=== PATIENT | male | born 1970 | race Caucasian/White ===

== ENCOUNTER 2017-12-04 13:52 | Inpatient (IN) | payer BC, MEDICAID, OTHER ==
[~2017-12-04] VITALS: Ht 172.7 cm; Wt 101.9 kg
[2017-12-04 14:52] LABS: CULTURE INDICATED? YES; MICROSCOPIC INDICATED
[2017-12-04] MEDS ORDERED: SODIUM CHLORIDE FLUSH 10ML SYR IVF ONE (16:30)
[2017-12-04] MEDS ORDERED: ONDANSETRON 2MG/ML, 2ML IVPush ONE (16:30)
[2017-12-04] MEDS ORDERED: SODIUM CHLORIDE 0.9% 1,000ML IVBOLUS ONE (16:30)
[2017-12-04] MEDS ORDERED: HYDROmorphone 2 MG/ML, 1ML ONE ×2 (16:35→22:20)
[2017-12-04] MEDS ORDERED: ONDANSETRON 2MG/ML, 2ML ONE ×2 (16:36→20:45)
[2017-12-04] MEDS: HYDROmorphone 1 MG/ML, 1ML IVPush PRN ×2 (16:37→18:14)
[2017-12-04 16:51] LABS: BASOPHILS # (AUTO) 0.02 x10^3/uL (0-0.1); BASOPHILS % (AUTO) 0 % (0-1); EOSINOPHILS # (AUTO) 0.01 x10^3/uL (0-0.4); EOSINOPHILS % (AUTO) 0 % (1-7); LYMPHOCYTES # (AUTO) 1.42 x10^3/uL (1-3.4); LYMPHOCYTES % (AUTO) 12 % (22-44); MD NO; MEAN CORPUSCULAR HEMOGLOBIN 30.2 pg (27.5-34.5); MEAN CORPUSCULAR HGB CONC 33.5 g/dL (33.2-36.2); MEAN CORPUSCULAR VOLUME 90.2 fL (81-97); MEAN PLATELET VOLUME 9.2 fL (7.4-10.4); MONOCYTES # (AUTO) 1.07 x10^3/uL (0.2-0.8); MONOCYTES % (AUTO) 9 % (2-9); NEUTROPHILS # (AUTO) 9.14 x10^3/uL (1.8-6.8); NEUTROPHILS % (AUTO) 78 % (42-75); PLATELET COUNT 223 x10^3/uL (130-400); RED BLOOD COUNT 5.02 x10^6/uL (4.38-5.82); RED CELL DISTRIBUTION WIDTH 12.4 % (9.4-14.8)
[2017-12-04 17:00] LABS: ALANINE AMINOTRANSFERASE 21 U/L (12-78); ALBUMIN 3.6 g/dL (3.4-5.0); ANION GAP 6 mmol/L (5-15); CALCIUM 8.8 mg/dL (8.5-10.1); CHLORIDE 101 mmol/L (98-107); CREATININE 1.11 mg/dL (0.7-1.3)
[2017-12-04 17:02] LABS: ALKALINE PHOSPHATASE 72 U/L (45-117); BILIRUBIN,TOTAL 1.1 mg/dL (0.2-1.0); TOTAL PROTEIN 7.6 g/dL (6.4-8.2)
[2017-12-04] MEDS ORDERED: OMNIPAQUE 350 MG/ML, 100ML BOTTLE ONE (17:37)
[2017-12-04] MEDS ORDERED: MIDAZOLAM 1 MG/ML, 2ML ONE (19:16)
[2017-12-04] MEDS ORDERED: FENTANYL PF 250 MCG/5ML ONE (19:16)
[2017-12-04] MEDS ORDERED: KETOROLAC 30 MG/1 ML ONE (20:12)
[2017-12-04] MEDS ORDERED: CEFOTETAN 2 GM ONE (20:12)
[2017-12-04] MEDS ORDERED: CEFOTETAN PMX 2GM/50ML 0 ML ONE (20:16)
[2017-12-04] MEDS ORDERED: KETAMINE 10 MG/ML, 20ML ONE (20:26)
[2017-12-04] MEDS ORDERED: EPHEDRINE 50 MG/ML, 1ML ONE (20:45)
[2017-12-04] MEDS ORDERED: NEOSTIGMINE 1 MG/ML, 10ML ONE (20:45)
[2017-12-04] MEDS ORDERED: ROCURONIUM 10 MG/ML,10ML ONE (20:45)
[2017-12-04] MEDS ORDERED: SUCCINYLCHOLINE 20 MG/ML, 10ML ONE (20:45)
[2017-12-04] MEDS ORDERED: BUPIVACAINE/PF 0.25% ONE ×2 (20:45)
[2017-12-04] MEDS ORDERED: GLYCOPYRROLATE 0.2MG/1ML, 5ML ONE (20:45)
[2017-12-04] MEDS ORDERED: PROPOFOL 10 MG/ML, 20ML ONE (20:45)
[2017-12-04] MEDS ORDERED: CEFAZOLIN 1,000 MG ONE (20:45)
[2017-12-04] MEDS ORDERED: DEXAMETHASONE 4 MG/ML, 1ML ONE (20:45)
[2017-12-04] MEDS ORDERED: EPINEPHRINE 1 MG/ML, 1ML ONE (20:47)
[2017-12-04] MEDS ORDERED: MIDAZOLAM 1 MG/ML, 2ML IV PRN (21:00)
[2017-12-04] MEDS ORDERED: OXYcodone 5 MG/5 ML ORAL.SOL UDC PO PRN (21:00)
[2017-12-04] MEDS ORDERED: ACETAMINOPHEN 325 MG TABLET PO PRN ×2 (21:00→22:00)
[2017-12-04] MEDS ORDERED: PROMETHAZINE 25 MG/ML, 1ML IV PRN (21:00)
[2017-12-04] MEDS ORDERED: ONDANSETRON 2MG/ML, 2ML IVPush PRN ×2 (21:00→22:00)
[2017-12-04] MEDS ORDERED: hydrALAzine 20 MG/ML, 1ML IV PRN (21:00)
[2017-12-04] MEDS ORDERED: LABETALOL 5MG/ML, 20ML IV PRN (21:00)
[2017-12-04] MEDS ORDERED: MEPERIDINE/PF 25MG/0.5ML IVPush PRN (21:00)
[2017-12-04] MEDS ORDERED: DIAZEPAM 5 MG/ML, 2ML IVPush PRN (21:00)
[2017-12-04] MEDS ORDERED: ALBUTEROL/IPRATROPIUM 2.5MG/0.5MG, 3 ML NPPB PRN (21:00)
[2017-12-04] MEDS ORDERED: METOCLOPRAMIDE 5 MG/ML, 2ML IV PRN (21:00)
[2017-12-04] MEDS ORDERED: ACETAMINOPHEN 650 MG/20.3 ML UDC ONE (21:52)
[2017-12-04] MEDS ORDERED: MEPERIDINE/PF 50 MG/ML ONE (21:53)
[2017-12-04] MEDS ORDERED: OXYcodone 5 MG/5 ML ORAL.SOL UDC ONE (21:53)
[2017-12-04] MEDS ORDERED: FENTANYL PF 100 MCG/2ML ONE (21:53)
[2017-12-04] MEDS: FENTANYL PF 100 MCG/2ML IV PRN ×2 (21:55→22:05)
[2017-12-04] MEDS ORDERED: morphine SULFATE 10 MG/ML, 1ML IVPush PRN (22:00)
[2017-12-04] MEDS: HYDROmorphone 1 MG/ML, 1ML IV PRN ×2 (22:21→22:36)
[2017-12-05] MEDS: D5%-0.45NACL+KCL 20MEQ 1,000 ML IV SCH ×2 (02:00→15:48)
[2017-12-05 03:01] VITALS: BP 105/58
[2017-12-05 03:02] VITALS: BP 106/62
[2017-12-05 04:30] VITALS: BP 98/56
[2017-12-05 05:27] LABS: BASOPHILS # (AUTO) 0.01 x10^3/uL (0-0.1); BASOPHILS % (AUTO) 0 % (0-1); EOSINOPHILS % (AUTO) 0 % (1-7); LYMPHOCYTES # (AUTO) 0.44 x10^3/uL (1-3.4); LYMPHOCYTES % (AUTO) 4 % (22-44); MD NO; MEAN CORPUSCULAR HEMOGLOBIN 30.3 pg (27.5-34.5); MEAN CORPUSCULAR HGB CONC 34.1 g/dL (33.2-36.2); MEAN PLATELET VOLUME 9.5 fL (7.4-10.4); MONOCYTES # (AUTO) 0.42 x10^3/uL (0.2-0.8); MONOCYTES % (AUTO) 4 % (2-9); NEUTROPHILS # (AUTO) 9.96 x10^3/uL (1.8-6.8); NEUTROPHILS % (AUTO) 92 % (42-75); PLATELET COUNT 189 x10^3/uL (130-400); RED BLOOD COUNT 4.55 x10^6/uL (4.38-5.82); RED CELL DISTRIBUTION WIDTH 12.1 % (9.4-14.8)
[2017-12-05 05:35] LABS: ANION GAP 8 mmol/L (5-15); CALCIUM 8.4 mg/dL (8.5-10.1); CHLORIDE 105 mmol/L (98-107); CREATININE 1.15 mg/dL (0.7-1.3)
[2017-12-05 07:03] VITALS: BP 103/62
[2017-12-05] MEDS: KETOROLAC 30 MG/1 ML IVPush SCH ×3 (08:28→22:23)
[2017-12-05] MEDS: CEFOTETAN PMX 1GM/50ML 50 ML IVPB SCH ×2 (08:30→22:23)
[2017-12-05] MEDS ORDERED: MORPHINE SULFATE 4 MG/ML, 1ML IVPush PRN (08:30)
[2017-12-05] MEDS: FAMOTIDINE 20 MG/2 ML IVPush SCH ×2 (09:57→22:23)
[2017-12-05 12:07] VITALS: BP 108/68
[2017-12-05 19:49] VITALS: BP 100/58
[2017-12-06] MEDS: D5%-0.45NACL+KCL 20MEQ 1,000 ML IV SCH ×3 (01:30→21:30)
[2017-12-06 04:38] VITALS: BP 102/59
[2017-12-06] MEDS: KETOROLAC 30 MG/1 ML IVPush SCH ×4 (04:47→23:09)
[2017-12-06 07:01] VITALS: BP 102/50
[2017-12-06] MEDS: FAMOTIDINE 20 MG/2 ML IVPush SCH ×2 (08:36→21:16)
[2017-12-06] MEDS: CEFOTETAN PMX 1GM/50ML 50 ML IVPB SCH (08:36)
[2017-12-06 12:35] VITALS: BP 102/54
[2017-12-06] MEDS ORDERED: OXYcodone/APAP 7.5/325MG TABLET PO PRN (16:00)
[2017-12-06 20:30] VITALS: BP 109/64
[2017-12-06] MEDS: HYDROcodone/APAP 10/325 MG TABLET PO PRN (21:16)
[2017-12-07 01:50] VITALS: BP 101/64
[2017-12-07] MEDS: HYDROcodone/APAP 10/325 MG TABLET PO PRN (03:25)
[2017-12-07] MEDS: KETOROLAC 30 MG/1 ML IVPush SCH (05:46)
[2017-12-07] MEDS: D5%-0.45NACL+KCL 20MEQ 1,000 ML IV SCH (07:30)
[2017-12-07 09:22] VITALS: BP 112/66
[2017-12-07] MEDS: FAMOTIDINE 20 MG/2 ML IVPush SCH (09:28)
[2017-12-07 12:58] VITALS: BP 122/78
[2017-12-07] MEDS ORDERED: OXYC-306 PO (16:00)
[2017-12-07] MEDS ORDERED: CEPH-368 PO (16:02)
== END 2017-12-07 16:24 | disposition home or self-care (01) | DRG 329 ==
LOC: OR 18:12 → EDIP 18:20 → 4NOR 22:50 → DCLOUNGE 12-07 16:10
PROVIDERS: ADMIT Surgery; ATTEND Surgery
PROC: 0DTF0ZZ Resection of Right Large Intestine, Open Approach (ICD-10-PCS; principal; 2017-12-04 21:15)
DX: R19.09 Other intra-abdominal and pelvic swelling, mass and lump (principal); K65.9 Peritonitis, unspecified
CPT/HCPCS: 36415; 74177; 80048; 80053; 81001; 83690; 85025; 87086; 88307; 96361; 96374; 96375; 96376; J0171; J0690; J1100; J1170; J1885; J2175; J2250; J2270; J2405; J2704; J2710; J3010; J3490; Q9967; J0330; J3480; J7030; S0028; S0074

== ENCOUNTER 2017-12-30 12:44 | Emergency (ER) | payer BC ==
[~2017-12-30] VITALS: Ht 172.7 cm; Wt 93.6 kg
[~2017-12-30 12:44] MED LIST: CEPH-368 PO; OXYC-306 PO
[2017-12-30] MEDS ORDERED: OXYcodone/APAP 5/325MG TABLET PO ONE (13:00)
[2017-12-30] MEDS ORDERED: DIAZEPAM 5 MG TABLET PO ONE (13:00)
[2017-12-30] MEDS ORDERED: KETOROLAC 30 MG/1 ML IM ONE (13:00)
[2017-12-30] MEDS ORDERED: OXYcodone/APAP 5/325MG TABLET ONE (13:12)
[2017-12-30] MEDS ORDERED: DIAZEPAM 5 MG TABLET ONE (13:12)
[2017-12-30] MEDS ORDERED: KETOROLAC 30 MG/1 ML ONE (13:12)
[2017-12-30] MEDS ORDERED: SODIUM CHLORIDE FLUSH 10ML SYR IVF ONE (14:30)
[2017-12-30] MEDS ORDERED: MORPHINE SULFATE 4 MG/ML, 1ML IVPush PRN (14:30)
[2017-12-30] MEDS ORDERED: MORPHINE SULFATE 4 MG/ML, 1ML ONE (14:36)
[2017-12-30] MEDS ORDERED: DIAZEPAM 5 MG/ML, 2ML IVPush ONE (16:00)
[2017-12-30 17:04] VITALS: BP 113/55
== END 2017-12-30 17:24 | disposition home or self-care (01) ==
LOC: ED 14:00
DX: M54.5 Low back pain (principal); Z87.891 Personal history of nicotine dependence; Z90.49 Acquired absence of other specified parts of digestive tract
CPT/HCPCS: 96372; 96374; 96375; 99284; J1885; J3360

== ENCOUNTER → 2018-06-28 | Outpatient (CLI) | payer BC ==
[~2018-06-28] MED LIST changes: +None at this Time
== END | disposition home or self-care (01) ==
LOC: STAR 08:16
PROVIDERS: ATTEND Surgery
DX: Z02.9 Encounter for administrative examinations, unspecified (principal)

== ENCOUNTER 2018-07-04 07:06 | Observation (INO) | payer BC ==
[2018-06-28 13:10] VITALS: BP 118/69
[~2018-07-04] VITALS: Ht 172.7 cm; Wt 109.6 kg
[~2018-07-04 07:06] MED LIST changes: +BUPIVACAINE/PF-EPI 0.5% 1:200K ONE
[2018-07-04] MEDS ORDERED: LACTATED RINGERS 1,000 ML IV SCH (07:21)
[2018-07-04] MEDS ORDERED: ACETAMINOPHEN 500 MG TABLET PO ONE (07:30)
[2018-07-04] MEDS ORDERED: GABAPENTIN 300 MG CAPSULE PO ONE (07:30)
[2018-07-04] MEDS ORDERED: LIDOCAINE-MPF 1%, 2ML INFIL ONE (07:30)
[2018-07-04] MEDS ORDERED: ONDANSETRON ODT 8 MG PO ONE (07:30)
[2018-07-04] MEDS ORDERED: MIDAZOLAM 1 MG/ML, 2ML ONE (07:38)
[2018-07-04] MEDS ORDERED: FENTANYL PF 250 MCG/5ML ONE (07:39)
[2018-07-04] MEDS ORDERED: ROCURONIUM 10MG/ML,5ML ONE (07:41)
[2018-07-04] MEDS ORDERED: PROPOFOL 10 MG/ML, 20ML ONE (07:41)
[2018-07-04] MEDS ORDERED: CEFAZOLIN 1,000 MG ONE ×2 (07:42)
[2018-07-04] MEDS ORDERED: DEXAMETHASONE 4 MG/ML, 1ML ONE ×2 (07:42)
[2018-07-04] MEDS ORDERED: SUCCINYLCHOLINE 20 MG/ML, 10ML ONE (07:42)
[2018-07-04] MEDS ORDERED: EPHEDRINE 50 MG/ML, 1ML IVPush PRN (08:00)
[2018-07-04] MEDS ORDERED: LABETALOL 5MG/ML, 20ML IV PRN (08:00)
[2018-07-04] MEDS ORDERED: MEPERIDINE/PF 25MG/0.5ML IVPush PRN (08:00)
[2018-07-04] MEDS ORDERED: MORPHINE SULFATE 4 MG/ML, 1ML IVPush PRN (08:00)
[2018-07-04] MEDS ORDERED: PROMETHAZINE 25 MG/ML, 1ML IM PRN (08:00)
[2018-07-04] MEDS ORDERED: OXYcodone 5 MG/5 ML ORAL.SOL UDC PO PRN (08:00)
[2018-07-04] MEDS ORDERED: PROMETHAZINE 12.5 MG SUPP PR PRN (08:00)
[2018-07-04] MEDS ORDERED: hydrALAzine 20 MG/ML, 1ML IV PRN (08:00)
[2018-07-04] MEDS ORDERED: METOPROLOL 1 MG/ML, 5ML IV PRN (08:00)
[2018-07-04] MEDS ORDERED: ALBUTEROL SULFATE 2.5 MG/3 ML NPPB PRN (08:00)
[2018-07-04] MEDS ORDERED: MIDAZOLAM 1 MG/ML, 2ML IV PRN (08:00)
[2018-07-04] MEDS ORDERED: SODIUM CHLORIDE 0.9% PF 10ML ONE (08:42)
[2018-07-04] MEDS ORDERED: NEOSTIGMINE 1 MG/ML, 10ML ONE (10:37)
[2018-07-04] MEDS ORDERED: GLYCOPYRROLATE 0.2MG/1ML, 5ML ONE (10:37)
[2018-07-04] MEDS ORDERED: LABETALOL 5MG/ML, 20ML IVPush PRN (11:00)
[2018-07-04] MEDS ORDERED: ONDANSETRON 2MG/ML, 2ML IVPush PRN (11:00)
[2018-07-04] MEDS ORDERED: ENALAPRILAT 1.25 MG/ML, 2ML IVPush PRN (11:00)
[2018-07-04] MEDS ORDERED: ACETAMINOPHEN 325 MG TABLET PO PRN (11:00)
[2018-07-04] MEDS: FENTANYL PF 100 MCG/2ML IV PRN ×3 (11:10→11:20)
[2018-07-04] MEDS ORDERED: OXYcodone 5 MG/5 ML ORAL.SOL UDC ONE (11:12)
[2018-07-04] MEDS ORDERED: HYDROmorphone 2 MG/ML, 1ML ONE ×5 (11:12→21:23)
[2018-07-04] MEDS: HYDROmorphone 1 MG/ML, 1ML IV PRN ×4 (11:15→11:50)
[2018-07-04] MEDS ORDERED: FENTANYL PF 100 MCG/2ML ONE (11:16)
[2018-07-04] MEDS ORDERED: LORazepam 2 MG/ML, 1ML ONE (11:34)
[2018-07-04] MEDS: LORazepam 2 MG/ML, 1ML IVPush PRN ×2 (11:38→11:45)
[2018-07-04] MEDS ORDERED: MEPERIDINE/PF 50 MG/ML ONE (12:09)
[2018-07-04 13:00] VITALS: BP 112/72
[2018-07-04] MEDS: HYDROmorphone 1 MG/ML, 1ML IVPush PRN ×4 (14:20→21:27)
[2018-07-04] MEDS: D5%-0.45NACL+KCL 20MEQ 1,000 ML IV SCH (15:02)
[2018-07-04] MEDS: CEFAZOLIN PMX 1GM/50ML 50 ML IVPB SCH (16:31)
[2018-07-04 20:18] VITALS: BP 107/63
[2018-07-05] MEDS: D5%-0.45NACL+KCL 20MEQ 1,000 ML IV SCH ×2 (00:16→08:59)
[2018-07-05] MEDS: OXYcodone/APAP 7.5/325MG TABLET PO PRN ×2 (00:28→08:11)
[2018-07-05] MEDS: CEFAZOLIN PMX 1GM/50ML 50 ML IVPB SCH (00:29)
[2018-07-05 02:22] VITALS: BP 104/62
[2018-07-05 05:25] LABS: BASOPHILS # (AUTO) 0.04 x10^3/uL (0-0.1); BASOPHILS % (AUTO) 0 % (0-1); EOSINOPHILS # (AUTO) 0.04 x10^3/uL (0-0.4); EOSINOPHILS % (AUTO) 0 % (1-7); LYMPHOCYTES # (AUTO) 0.93 x10^3/uL (1-3.4); LYMPHOCYTES % (AUTO) 8 % (22-44); MD NO; MEAN CORPUSCULAR HEMOGLOBIN 30.2 pg (27.5-34.5); MEAN CORPUSCULAR HGB CONC 33.7 g/dL (33.2-36.2); MEAN CORPUSCULAR VOLUME 89.6 fL (81-97); MEAN PLATELET VOLUME 9.2 fL (7.4-10.4); MONOCYTES # (AUTO) 0.68 x10^3/uL (0.2-0.8); MONOCYTES % (AUTO) 6 % (2-9); NEUTROPHILS # (AUTO) 10.63 x10^3/uL (1.8-6.8); NEUTROPHILS % (AUTO) 86 % (42-75); PLATELET COUNT 233 x10^3/uL (130-400); RED BLOOD COUNT 4.77 x10^6/uL (4.38-5.82); RED CELL DISTRIBUTION WIDTH 12.4 % (9.4-14.8)
[2018-07-05 05:34] LABS: ANION GAP 6 mmol/L (5-15); CALCIUM 8.4 mg/dL (8.5-10.1); CHLORIDE 107 mmol/L (98-107)
[2018-07-05] MEDS ORDERED: HYDROmorphone 2 MG/ML, 1ML ONE (06:23)
[2018-07-05] MEDS: HYDROmorphone 1 MG/ML, 1ML IVPush PRN (06:27)
[2018-07-05 06:45] VITALS: BP 144/72
[2018-07-05 12:34] VITALS: BP 114/67
[2018-07-05 19:38] VITALS: BP 123/74
[2018-07-06 02:42] VITALS: BP 113/71
[2018-07-06 07:53] VITALS: BP 103/65
[2018-07-06] MEDS ORDERED: HYDR-882 PO (09:19)
== END 2018-07-06 10:09 | disposition home or self-care (01) ==
LOC: OUT 07:06 → ORIP 10:56 → 4NOR 12:50 → DCLOUNGE 07-06 09:52
PROVIDERS: ADMIT Surgery; ATTEND Surgery
DX: K43.2 Incisional hernia without obstruction or gangrene (principal); D49.0 Neoplasm of unspecified behavior of digestive system
CPT/HCPCS: 36415; 49560; 49568; 80048; 85025; 96365; 96366; 96375; 96376; C1781; G0378; J0330; J0690; J1100; J1170; J2060; J2175; J2250; J2704; J2710; J3010; J3480; J3490; J7120; Q0162

== ENCOUNTER 2018-07-18 21:04 | Inpatient (IN) | payer BC ==
[~2018-07-18] VITALS: Ht 172.7 cm; Wt 108.1 kg
[~2018-07-18 21:04] MED LIST changes: -BUPIVACAINE/PF-EPI 0.5% 1:200K ONE; +HYDR-3653 PO
[2018-07-18] MEDS ORDERED: ONDANSETRON 2MG/ML, 2ML ONE (21:36)
[2018-07-18] MEDS ORDERED: HYDROmorphone 2 MG/ML, 1ML ONE (21:36)
[2018-07-18 21:41] LABS: BASOPHILS # (AUTO) 0.04 x10^3/uL (0-0.1); BASOPHILS % (AUTO) 1 % (0-1); EOSINOPHILS # (AUTO) 0.25 x10^3/uL (0-0.4); EOSINOPHILS % (AUTO) 3 % (1-7); LYMPHOCYTES # (AUTO) 1.06 x10^3/uL (1-3.4); LYMPHOCYTES % (AUTO) 13 % (22-44); MD NO; MEAN CORPUSCULAR HEMOGLOBIN 29.8 pg (27.5-34.5); MEAN CORPUSCULAR HGB CONC 33.6 g/dL (33.2-36.2); MEAN CORPUSCULAR VOLUME 88.6 fL (81-97); MEAN PLATELET VOLUME 8.7 fL (7.4-10.4); MONOCYTES # (AUTO) 0.42 x10^3/uL (0.2-0.8); MONOCYTES % (AUTO) 5 % (2-9); NEUTROPHILS # (AUTO) 6.52 x10^3/uL (1.8-6.8); NEUTROPHILS % (AUTO) 79 % (42-75); PLATELET COUNT 289 x10^3/uL (130-400); RED BLOOD COUNT 5.19 x10^6/uL (4.38-5.82)
[2018-07-18 21:53] LABS: ALANINE AMINOTRANSFERASE 366 U/L (12-78); ALBUMIN 3.8 g/dL (3.4-5.0); ANION GAP 7 mmol/L (5-15); CALCIUM 9.1 mg/dL (8.5-10.1); CHLORIDE 106 mmol/L (98-107); CREATININE 1.06 mg/dL (0.7-1.3)
[2018-07-18 21:56] LABS: ALKALINE PHOSPHATASE 116 U/L (45-117); TOTAL PROTEIN 7.4 g/dL (6.4-8.2)
[2018-07-18] MEDS ORDERED: ONDANSETRON 2MG/ML, 2ML IVPush ONE (22:00)
[2018-07-18] MEDS ORDERED: SODIUM CHLORIDE FLUSH 10ML SYR IVF ONE (22:00)
[2018-07-18] MEDS ORDERED: SODIUM CHLORIDE 0.9% 1,000ML IVBOLUS ONE (22:00)
[2018-07-18] MEDS ORDERED: HYDROmorphone 2 MG/ML, 1ML IVPush PRN (22:00)
[2018-07-18 22:49] LABS: MICROSCOPIC INDICATED
[2018-07-18 23:01] LABS: CULTURE INDICATED? NO
[2018-07-18] MEDS ORDERED: PROMETHAZINE 25 MG/ML, 1ML IM PRN (23:30)
[2018-07-18] MEDS ORDERED: BISACODYL 10 MG SUPP PR PRN (23:30)
[2018-07-18] MEDS ORDERED: TEMAZEPAM 15 MG CAPSULE PO PRN (23:30)
[2018-07-18] MEDS ORDERED: hydrALAzine 20 MG/ML, 1ML IVPush PRN (23:30)
[2018-07-18] MEDS ORDERED: OMNIPAQUE 350 MG/ML, 100ML BOTTLE ONE (23:49)
[2018-07-19] MEDS: HYDROmorphone 2 MG/ML, 1ML IVPush PRN ×5 (00:43→21:49)
[2018-07-19 01:00] VITALS: BP 114/70
[2018-07-19 07:22] LABS: PROTHROMBIN TIME 10.3 Seconds (9.6-11.5)
[2018-07-19 07:24] LABS: ALANINE AMINOTRANSFERASE 354 U/L (12-78); ALBUMIN 3.4 g/dL (3.4-5.0); ANION GAP 5 mmol/L (5-15); CALCIUM 8.5 mg/dL (8.5-10.1); CHLORIDE 108 mmol/L (98-107); CREATININE 0.99 mg/dL (0.7-1.3)
[2018-07-19 07:34] LABS: ALKALINE PHOSPHATASE 113 U/L (45-117); BILIRUBIN,TOTAL 1.3 mg/dL (0.2-1.0); TOTAL PROTEIN 6.7 g/dL (6.4-8.2)
[2018-07-19 07:52] VITALS: BP 100/64
[2018-07-19] MEDS: SODIUM CHLORIDE 0.9% 1,000 ML IV SCH ×2 (09:33→18:34)
[2018-07-19] MEDS ORDERED: MAGNESIUM HYDROXIDE 8%, 30ML UDC ONE (11:46)
[2018-07-19] MEDS ORDERED: PROCHLORPERAZINE 5 MG/ML, 2ML ONE (11:53)
[2018-07-19] MEDS ORDERED: MAGNESIUM HYDROXIDE 8%, 30ML UDC PO PRN (12:00)
[2018-07-19] MEDS ORDERED: PROCHLORPERAZINE 5 MG/ML, 2ML IVPush PRN (12:00)
[2018-07-19 13:00] VITALS: BP 113/67
[2018-07-19 21:55] VITALS: BP 103/68
[2018-07-20 01:01] VITALS: BP 132/86
[2018-07-20 05:36] LABS: ALBUMIN 3.3 g/dL (3.4-5.0); ANION GAP 7 mmol/L (5-15); CALCIUM 8.6 mg/dL (8.5-10.1); CHLORIDE 107 mmol/L (98-107)
[2018-07-20 05:40] LABS: ALANINE AMINOTRANSFERASE 265 U/L (12-78); ALKALINE PHOSPHATASE 106 U/L (45-117); CREATININE 1.01 mg/dL (0.7-1.3); TOTAL PROTEIN 6.6 g/dL (6.4-8.2)
[2018-07-20] MEDS: SODIUM CHLORIDE 0.9% 1,000 ML IV SCH ×2 (06:10→16:00)
[2018-07-20] MEDS ORDERED: MIDAZOLAM 1 MG/ML, 2ML ONE (07:48)
[2018-07-20] MEDS ORDERED: FENTANYL PF 100 MCG/2ML ONE (07:48)
[2018-07-20] MEDS ORDERED: FENTANYL PF 100 MCG/2ML IV PRN (09:00)
[2018-07-20] MEDS ORDERED: ONDANSETRON 2MG/ML, 2ML IV PRN (09:00)
[2018-07-20] MEDS ORDERED: ONDANSETRON ODT 8 MG PO PRN (09:00)
[2018-07-20] MEDS ORDERED: ACETAMINOPHEN 325 MG TABLET PO PRN (09:00)
[2018-07-20] MEDS ORDERED: OXYcodone 5 MG/5 ML ORAL.SOL UDC PO PRN (09:00)
[2018-07-20] MEDS ORDERED: PROMETHAZINE 25 MG/ML, 1ML IV PRN (09:00)
[2018-07-20] MEDS ORDERED: MEPERIDINE/PF 25MG/0.5ML IVPush PRN (09:00)
[2018-07-20] MEDS ORDERED: DEXAMETHASONE 4 MG/ML, 1ML ONE (09:40)
[2018-07-20] MEDS ORDERED: ONDANSETRON 2MG/ML, 2ML ONE (09:40)
[2018-07-20] MEDS ORDERED: PROPOFOL 10 MG/ML, 20ML ONE (09:40)
[2018-07-20] MEDS ORDERED: CEFAZOLIN 1,000 MG ONE (09:40)
[2018-07-20] MEDS ORDERED: ROCURONIUM 10MG/ML,5ML ONE (09:40)
[2018-07-20] MEDS ORDERED: NEOSTIGMINE 1 MG/ML, 10ML ONE (09:40)
[2018-07-20] MEDS ORDERED: SUCCINYLCHOLINE 20 MG/ML, 10ML ONE (09:40)
[2018-07-20] MEDS ORDERED: GLYCOPYRROLATE 0.2MG/1ML, 5ML ONE (09:40)
[2018-07-20] MEDS ORDERED: INDOMETHACIN 50 MG SUPP.RECT ONE (09:43)
[2018-07-20] MEDS ORDERED: INDOMETHACIN 50 MG SUPP.RECT PR ONE (10:30)
[2018-07-20] MEDS ORDERED: LACTATED RINGERS 1,000 ML IVBOLUS ONE (10:30)
[2018-07-20 14:00] VITALS: BP 110/57
[2018-07-20 18:42] VITALS: BP 106/59
[2018-07-21 01:26] VITALS: BP 104/61
[2018-07-21 05:39] LABS: ALBUMIN 3.4 g/dL (3.4-5.0); ANION GAP 6 mmol/L (5-15); CALCIUM 8.9 mg/dL (8.5-10.1); CHLORIDE 108 mmol/L (98-107); CREATININE 0.99 mg/dL (0.7-1.3)
[2018-07-21 05:41] LABS: BASOPHILS # (AUTO) 0.02 x10^3/uL (0-0.1); BASOPHILS % (AUTO) 0 % (0-1); EOSINOPHILS # (AUTO) 0.07 x10^3/uL (0-0.4); EOSINOPHILS % (AUTO) 1 % (1-7); LYMPHOCYTES # (AUTO) 1.36 x10^3/uL (1-3.4); LYMPHOCYTES % (AUTO) 21 % (22-44); MD NO; MEAN CORPUSCULAR HEMOGLOBIN 30.4 pg (27.5-34.5); MEAN CORPUSCULAR VOLUME 89.4 fL (81-97); MEAN PLATELET VOLUME 9.1 fL (7.4-10.4); MONOCYTES # (AUTO) 0.41 x10^3/uL (0.2-0.8); MONOCYTES % (AUTO) 6 % (2-9); NEUTROPHILS # (AUTO) 4.63 x10^3/uL (1.8-6.8); NEUTROPHILS % (AUTO) 71 % (42-75); PLATELET COUNT 236 x10^3/uL (130-400); RED BLOOD COUNT 4.62 x10^6/uL (4.38-5.82); RED CELL DISTRIBUTION WIDTH 12.2 % (9.4-14.8)
[2018-07-21 05:43] LABS: ALANINE AMINOTRANSFERASE 177 U/L (12-78); ALKALINE PHOSPHATASE 94 U/L (45-117); TOTAL PROTEIN 6.5 g/dL (6.4-8.2)
[2018-07-21] MEDS ORDERED: POTASSIUM CHLORIDE 40 MEQ in SODIUM CHLORIDE 0.9% 500 ML IV ONE (06:30)
[2018-07-21] MEDS ORDERED: hydrALAzine 20 MG/ML, 1ML IV PRN (08:00)
[2018-07-21] MEDS ORDERED: MIDAZOLAM 1 MG/ML, 2ML IV PRN (08:00)
[2018-07-21] MEDS ORDERED: LORazepam 2 MG/ML, 1ML IVPush PRN (08:00)
[2018-07-21] MEDS ORDERED: EPHEDRINE 50 MG/ML, 1ML IVPush PRN (08:00)
[2018-07-21] MEDS ORDERED: PROCHLORPERAZINE 5 MG/ML, 2ML IV PRN (08:00)
[2018-07-21] MEDS ORDERED: ALBUTEROL SULFATE 2.5 MG/3 ML NPPB PRN (08:00)
[2018-07-21] MEDS ORDERED: OXYcodone 5 MG/5 ML ORAL.SOL UDC PO PRN (08:00)
[2018-07-21] MEDS ORDERED: LABETALOL 5MG/ML, 20ML IV PRN (08:00)
[2018-07-21] MEDS ORDERED: MEPERIDINE/PF 25MG/0.5ML IVPush PRN (08:00)
[2018-07-21] MEDS ORDERED: MORPHINE SULFATE 4 MG/ML, 1ML IVPush PRN (08:00)
[2018-07-21] MEDS ORDERED: DIPHENHYDRAMINE 50 MG/ML, 1ML IVPush PRN (08:00)
[2018-07-21] MEDS ORDERED: METOPROLOL 1 MG/ML, 5ML IV PRN (08:00)
[2018-07-21] MEDS ORDERED: MIDAZOLAM 1 MG/ML, 2ML ONE (08:25)
[2018-07-21] MEDS ORDERED: SUCCINYLCHOLINE 20 MG/ML, 10ML ONE (08:26)
[2018-07-21] MEDS ORDERED: PROPOFOL 10 MG/ML, 20ML ONE (08:26)
[2018-07-21] MEDS ORDERED: FENTANYL PF 250 MCG/5ML ONE (08:26)
[2018-07-21] MEDS ORDERED: LIDOCAINE-MPF 2% ,5ML ONE (08:26)
[2018-07-21 08:30] VITALS: BP 111/69
[2018-07-21] MEDS ORDERED: BUPIVACAINE 0.25% ONE (08:45)
[2018-07-21] MEDS ORDERED: EPINEPHRINE 1 MG/ML, 1ML ONE (08:46)
[2018-07-21] MEDS ORDERED: BUPIVACAINE/PF-EPI 0.5% 1:200K ONE (08:49)
[2018-07-21] MEDS ORDERED: KETOROLAC 30 MG/1 ML ONE (09:32)
[2018-07-21] MEDS ORDERED: GLYCOPYRROLATE 0.2MG/1ML, 5ML ONE (10:27)
[2018-07-21] MEDS ORDERED: NEOSTIGMINE 1 MG/ML, 10ML ONE (10:27)
[2018-07-21] MEDS ORDERED: ONDANSETRON 2MG/ML, 2ML ONE ×2 (10:31→15:37)
[2018-07-21] MEDS ORDERED: HYDROmorphone 2 MG/ML, 1ML ONE ×2 (11:24→12:01)
[2018-07-21] MEDS: HYDROmorphone 1 MG/ML, 1ML IV PRN ×9 (11:26→13:30)
[2018-07-21] MEDS ORDERED: OXYcodone 5 MG/5 ML ORAL.SOL UDC ONE (11:27)
[2018-07-21] MEDS ORDERED: LORazepam 2 MG/ML, 1ML ONE (11:49)
[2018-07-21] MEDS ORDERED: MEPERIDINE/PF 50 MG/ML ONE (12:00)
[2018-07-21] MEDS ORDERED: DIAZEPAM 5 MG/ML, 2ML IV ONE ×2 (12:30)
[2018-07-21] MEDS ORDERED: FENTANYL PF 100 MCG/2ML ONE ×2 (13:14→13:31)
[2018-07-21] MEDS: FENTANYL PF 100 MCG/2ML IV PRN ×4 (13:17→14:00)
[2018-07-21 14:36] VITALS: BP 101/61
[2018-07-21] MEDS: OXYcodone IR 5MG TABLET PO PRN (15:34)
[2018-07-21] MEDS: D5%-0.45NACL+KCL 20MEQ 1,000 ML IV SCH (15:35)
[2018-07-21 19:29] VITALS: BP 114/75
[2018-07-21] MEDS: HYDROmorphone 2 MG/ML, 1ML IVPush PRN ×2 (19:50→22:58)
[2018-07-21] MEDS: CEFOTETAN PMX 1GM/50ML 50 ML IVPB SCH (21:51)
[2018-07-22 00:30] VITALS: BP 106/67
[2018-07-22] MEDS: HYDROmorphone 2 MG/ML, 1ML IVPush PRN ×5 (02:04→17:36)
[2018-07-22] MEDS: D5%-0.45NACL+KCL 20MEQ 1,000 ML IV SCH ×3 (03:56→20:46)
[2018-07-22 03:58] VITALS: BP 111/67
[2018-07-22 05:35] LABS: MEAN CORPUSCULAR HGB CONC 33.7 g/dL (33.2-36.2); MEAN CORPUSCULAR VOLUME 88.9 fL (81-97); MEAN PLATELET VOLUME 9.1 fL (7.4-10.4); PLATELET COUNT 240 x10^3/uL (130-400); RED BLOOD COUNT 4.55 x10^6/uL (4.38-5.82)
[2018-07-22 05:40] LABS: CHLORIDE 105 mmol/L (98-107)
[2018-07-22 05:49] LABS: ALANINE AMINOTRANSFERASE 143 U/L (12-78); ALBUMIN 3.1 g/dL (3.4-5.0); ALKALINE PHOSPHATASE 83 U/L (45-117); ANION GAP 6 mmol/L (5-15); BILIRUBIN,TOTAL 0.9 mg/dL (0.2-1.0); CALCIUM 8.1 mg/dL (8.5-10.1); CREATININE 1.15 mg/dL (0.7-1.3); TOTAL PROTEIN 6.3 g/dL (6.4-8.2)
[2018-07-22 06:02] LABS: BASOPHILS # (AUTO) 0.05 x10^3/uL (0-0.1); BASOPHILS % (AUTO) 1 % (0-1); EOSINOPHILS % (AUTO) 6 % (1-7); LYMPHOCYTES # (AUTO) 0.76 x10^3/uL (1-3.4); LYMPHOCYTES % (AUTO) 8 % (22-44); MD SCAN; MONOCYTES # (AUTO) 0.53 x10^3/uL (0.2-0.8); MONOCYTES % (AUTO) 6 % (2-9); NEUTROPHILS # (AUTO) 7.78 x10^3/uL (1.8-6.8); NEUTROPHILS % (AUTO) 80 % (42-75)
[2018-07-22 08:23] VITALS: BP 99/61
[2018-07-22] MEDS: CEFOTETAN PMX 1GM/50ML 50 ML IVPB SCH (09:18)
[2018-07-22 13:29] VITALS: BP 97/55
[2018-07-22] MEDS: OXYcodone IR 5MG TABLET PO PRN ×2 (16:20→20:29)
[2018-07-22 18:56] VITALS: BP 114/70
[2018-07-23] MEDS: OXYcodone IR 5MG TABLET PO PRN ×3 (00:25→09:05)
[2018-07-23 00:29] VITALS: BP 121/72
[2018-07-23] MEDS: D5%-0.45NACL+KCL 20MEQ 1,000 ML IV SCH ×2 (03:09→12:30)
[2018-07-23 05:14] LABS: ALANINE AMINOTRANSFERASE 112 U/L (12-78); ALBUMIN 3.2 g/dL (3.4-5.0); ANION GAP 6 mmol/L (5-15); CALCIUM 8.4 mg/dL (8.5-10.1); CHLORIDE 105 mmol/L (98-107)
[2018-07-23 05:17] LABS: ALKALINE PHOSPHATASE 84 U/L (45-117); BILIRUBIN,TOTAL 1.2 mg/dL (0.2-1.0); TOTAL PROTEIN 6.5 g/dL (6.4-8.2)
[2018-07-23] MEDS: HYDROmorphone 2 MG/ML, 1ML IVPush PRN (06:24)
[2018-07-23] MEDS ORDERED: POTASSIUM CHLORIDE 20 MEQ TAB.ER.PRT PO ONE (06:30)
[2018-07-23 06:58] VITALS: BP 108/62
[2018-07-23] MEDS ORDERED: HYDROmorphone 2 MG/ML, 1ML IVPush PRN (08:00)
[2018-07-23] MEDS ORDERED: HYDROcodone/APAP 10/325 MG TABLET PO PRN (11:30)
[2018-07-23 13:04] VITALS: BP 107/67
[2018-07-23] MEDS ORDERED: HYDR-3241 PO (15:09)
[2018-07-23] MEDS ORDERED: POLY17PO5 PO (15:10)
== END 2018-07-23 16:00 | disposition home or self-care (01) | DRG 415 ==
LOC: ED 23:00 → EDIP 23:09 → 4NOR 23:55
PROVIDERS: ADMIT Hospitalist; ATTEND Hospitalist
PROC: 0F7D8DZ Dilation of Pancreatic Duct with Intraluminal Device, Via Natural or Artificial Opening Endoscopic (ICD-10-PCS; 2018-07-20)
PROC: 0FC98ZZ Extirpation of Matter from Common Bile Duct, Via Natural or Artificial Opening Endoscopic (ICD-10-PCS; 2018-07-20)
PROC: BF111ZZ Fluoroscopy of Biliary and Pancreatic Ducts using Low Osmolar Contrast (ICD-10-PCS; 2018-07-20)
PROC: 0DNU0ZZ Release Omentum, Open Approach (ICD-10-PCS; 2018-07-21)
PROC: 3E0T3BZ Introduction of Anesthetic Agent into Peripheral Nerves and Plexi, Percutaneous Approach (ICD-10-PCS; 2018-07-21)
PROC: 3E0T33Z Introduction of Anti-inflammatory into Peripheral Nerves and Plexi, Percutaneous Approach (ICD-10-PCS; 2018-07-21)
PROC: 0FT40ZZ Resection of Gallbladder, Open Approach (ICD-10-PCS; principal; 2018-07-21 09:30)
DX: K80.61 Calculus of gallbladder and bile duct with cholecystitis, unspecified, with obstruction (principal); K56.7 Ileus, unspecified; K40.20 Bilateral inguinal hernia, without obstruction or gangrene, not specified as recurrent; K66.0 Peritoneal adhesions (postprocedural) (postinfection); E02 Subclinical iodine-deficiency hypothyroidism; K82.8 Other specified diseases of gallbladder; Z80.0 Family history of malignant neoplasm of digestive organs; Z87.891 Personal history of nicotine dependence
CPT/HCPCS: 36415; 74328; 99285; J3490; 74177; 80053; 81001; 83605; 83690; 84439; 84443; 85025; 85610; 85730; 87040; 88304; 93005; 96361; 96374; 96375; G0378; J0171; J0690; J1100; J1170; J1885; J2250; J2405; J2704; J2710; J3010; J3360; J3480; Q9967; C1769; C1894; C2625; J0330; J2060; J7030; J7040; J7120; S0074

== ENCOUNTER 2019-03-19 10:16 | Emergency (ER) | payer SELFPAY ==
[~2019-03-19] VITALS: Ht 172.7 cm; Wt 104.7 kg
[~2019-03-19 10:16] MED LIST changes: +HYDR-3241 PO; +POLY17PO5 PO
[2019-03-19 10:18] VITALS: BP 114/74
--- NOTE | 2019-03-19 11:09 | NUR ---
Yellow slip sent to pharmacy requesting medication per [facility].
[2019-03-19] MEDS ORDERED: HYDROcodone/APAP 5/325 TABLET PO ONE (11:30)
[2019-03-19] MEDS ORDERED: DIPH,PERTUSS(ACELL),TET VAC/PF 0.5 ML IM-VACC ONE (11:30)
[2019-03-19] MEDS ORDERED: LIDOCAINE 4% CREAM 5GM TUBE TP ONE (11:30)
[2019-03-19] MEDS ORDERED: HYDROcodone/APAP 5/325 TABLET ONE (11:31)
--- NOTE | 2019-03-19 12:58 | NUR ---
Patient given discharge instructions and they have confirmed that they understand the instructions. Patient ambulatory with steady gait.
== END 2019-03-19 13:00 | disposition home or self-care (01) ==
LOC: ED 11:56
DX: S91.312A Laceration without foreign body, left foot, initial encounter (principal); Z87.891 Personal history of nicotine dependence; X58.XXXA Exposure to other specified factors, initial encounter; Y93.89 Activity, other specified; Y92.89 Other specified places as the place of occurrence of the external cause; Y99.8 Other external cause status
CPT/HCPCS: 99283

== ENCOUNTER 2019-11-28 13:47 | Emergency (ER) | payer SELFPAY ==
[~2019-11-28] VITALS: Ht 172.7 cm; Wt 99.9 kg
[2019-11-28 13:49] VITALS: BP 119/69
[2019-11-28] MEDS ORDERED: LIDOCAINE-MPF 1%, 5ML INFIL ONE (14:00)
--- NOTE | 2019-11-28 14:10 | NUR ---
PT HERE FOR PAINFUL AREA TO GROIN, THINKS IT IS AN INGROWN HAIR. RESTING ON [place]. DELANO.
[2019-11-28] MEDS ORDERED: LIDOCAINE-MPF 1%, 5ML ONE (14:15)
--- NOTE | 2019-11-28 14:26 | NUR ---
PA AT BEDSIDE PERFORMING I&D NOW.
== END 2019-11-28 14:44 | disposition home or self-care (01) ==
LOC: ED 14:30
DX: L02.214 Cutaneous abscess of groin (principal); Z90.49 Acquired absence of other specified parts of digestive tract
CPT/HCPCS: 10060; 99283

== ENCOUNTER 2019-11-30 11:53 | Emergency (ER) | payer SELFPAY ==
[~2019-11-30] VITALS: Ht 172.7 cm; Wt 99.0 kg
--- NOTE | 2019-11-30 13:56 | NUR ---
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
--- NOTE | 2019-11-30 14:10 | NUR ---
PT WAS SEEN ON TUE. DRAINED ABCESS IN LEFT GROIN. SENT HOME WITH ABX. PT BACK TODAY FOR RECHECK BUT ALSO STATES "PAIN IS MUCH WORSE AND ITS WAY MORE RED AND SWOLLEN THAN IT WAS". ABX WAS KEFLEX AND BACTRIM. HAS BEEN TAKING THEM.
[2019-11-30] MEDS ORDERED: MORPHINE SULFATE 4 MG/ML, 1ML ONE ×2 (14:36→15:23)
[2019-11-30] MEDS ORDERED: PIPERACILLIN/TAZO/PMX 3.375GM 50 ML ONE (14:36)
[2019-11-30] MEDS ORDERED: ONDANSETRON 2MG/ML, 2ML ONE (14:36)
[2019-11-30] MEDS: MORPHINE SULFATE 4 MG/ML, 1ML IVPush PRN ×2 (14:49→15:28)
[2019-11-30 14:56] LABS: BASOPHILS # (AUTO) 0.07 x10^3/uL (0-0.1); BASOPHILS % (AUTO) 1 % (0-1); EOSINOPHILS # (AUTO) 0.08 x10^3/uL (0-0.4); EOSINOPHILS % (AUTO) 1 % (1-7); LYMPHOCYTES # (AUTO) 1.32 x10^3/uL (1-3.4); LYMPHOCYTES % (AUTO) 17 % (22-44); MD NO; MEAN CORPUSCULAR HEMOGLOBIN 30.5 pg (27.5-34.5); MEAN CORPUSCULAR HGB CONC 33.7 g/dL (33.2-36.2); MEAN CORPUSCULAR VOLUME 90.4 fL (81-97); MEAN PLATELET VOLUME 8.8 fL (7.4-10.4); MONOCYTES % (AUTO) 6 % (2-9); NEUTROPHILS % (AUTO) 75 % (42-75); PLATELET COUNT 226 x10^3/uL (130-400); RED BLOOD COUNT 4.95 x10^6/uL (4.38-5.82); RED CELL DISTRIBUTION WIDTH 12.5 % (9.4-14.8)
[2019-11-30 14:57] LABS: ALBUMIN 4.1 g/dL (3.4-5.0); ANION GAP 6 mmol/L (5-15); CALCIUM 8.8 mg/dL (8.5-10.1); CHLORIDE 109 mmol/L (98-107); CREATININE 1.19 mg/dL (0.7-1.3)
[2019-11-30] MEDS ORDERED: PIPERACILLIN/TAZO/PMX 3.375GM 50 ML IVPB ONE (15:00)
[2019-11-30] MEDS ORDERED: ONDANSETRON 2MG/ML, 2ML IVPush ONE (15:00)
--- NOTE | 2019-11-30 15:21 | NUR ---
PT REPORTS PAIN IN LEG IS "SHARP"
[2019-11-30] MEDS ORDERED: SODIUM CHLORIDE FLUSH 10ML SYR IVF ONE (15:30)
--- NOTE | 2019-11-30 15:31 | NUR ---
SEE MAR FOR PAIN INTERVENTIONS
--- NOTE | 2019-11-30 16:03 | NUR ---
PT IN CT
--- NOTE | 2019-11-30 16:15 | NUR ---
PT BACK FROM CT. REPORTS PAIN IMPROVEMENT. "THE PAIN HAS CALMED DOWN"
[2019-11-30] MEDS ORDERED: OMNIPAQUE 350 MG/ML, 100ML BOTTLE ONE (16:17)
[2019-11-30 16:39] VITALS: BP 101/64
--- NOTE | 2019-11-30 16:45 | NUR ---
BREAK RN: CHART UP FOR RECHECK, PT AWARE
== END 2019-11-30 17:44 | disposition home or self-care (01) ==
LOC: ED 17:35
DX: L03.314 Cellulitis of groin (principal)
CPT/HCPCS: 36415; 74177; 80048; 82040; 83605; 84145; 85025; 87040; 96365; 96375; 96376; 99285; J2270; J2405; J2543; Q9967